=== PATIENT | male | born 1990 | race Caucasian/White ===

== ENCOUNTER 2016-09-17 11:04 | Emergency (ER) | payer OTHER ==
[~2016-09-17] VITALS: Ht 177.8 cm; Wt 66.0 kg
[2016-09-17 11:06] VITALS: BP 130/82
[2016-09-17] MEDS ORDERED: DIAZEPAM 5 MG TABLET ONE (11:57)
[2016-09-17] MEDS ORDERED: DIAZEPAM 5 MG TABLET PO ONE (12:00)
== END 2016-09-17 12:24 | disposition home or self-care (01) ==
LOC: ED 12:20
DX: S16.1XXA Strain of muscle, fascia and tendon at neck level, initial encounter (principal); F12.10 Cannabis abuse, uncomplicated; X50.9XXA Other and unspecified overexertion or strenuous movements or postures, initial encounter; Y93.89 Activity, other specified; Y99.8 Other external cause status; Y92.89 Other specified places as the place of occurrence of the external cause
CPT/HCPCS: 99283